=== PATIENT | female | born 1940 | race Caucasian/White ===

== ENCOUNTER 2019-01-09 11:55 | Observation (INO) | payer MEDICARE, BC ==
[~2019-01-09] VITALS: Ht 162.6 cm; Wt 76.7 kg
[2019-01-09 11:58] VITALS: BP 158/86
[2019-01-09] MEDS ORDERED: ELIQUIS2.5 MG PO (12:02)
[2019-01-09] MEDS ORDERED: CARDIZEM30 MG PO (12:08)
[2019-01-09] MEDS ORDERED: COZAAR 25 MG TA25 M1 PO (12:09)
[2019-01-09 12:31] LABS: ABSOLUTE EOSINOPHILS 0.1 thou/uL (0.0-0.7); ABSOLUTE LYMPHOCYTES 0.8 thou/uL (0.8-5.3); ABSOLUTE MONOCYTES 0.4 thou/uL (0.0-1.2); ABSOLUTE NEUTROPHILS 4.8 thou/uL (1.6-8.1); BASOPHILS 0.5 %; EOSINOPHILS 1.3 %; HEMATOCRIT 39.3 % (37.0-47.0); HEMOGLOBIN 13.5 gm/dL (12.0-15.0); LYMPHOCYTES 12.7 %; MCH 30.6 pg (26.0-34.0); MCHC 34.4 g/dL (28.0-37.0); MCV 88.9 fL (80.0-100.0); MONOCYTES 6.9 %; MPV 8.5 fl. (7.2-11.1); NUCLEATED RBCS 0 /100WBC; PLATELET COUNT* 177 thou/uL (150-400); POLYS 78.6 %; RBC 4.42 mil/uL (4.20-5.00); RDW-CV 13.6 % (10.5-14.5); WBC 6.1 thou/uL (4.0-11.0)
[2019-01-09 12:40] LABS: CALCIUM 9.3 mg/dL (8.5-10.1)
--- NOTE | 2019-01-09 12:42 | NUR ---
THIS NURSE RECEIVED REPORT FROM BEA RUSSELL. THIS NURSE TO ASSUME PT CARE AT THIS TIME.
[2019-01-09 12:51] LABS: ALBUMIN 3.7 g/dL (3.4-5.0); MAGNESIUM 2.2 mg/dL (1.8-2.4); TOTAL BILIRUBIN 0.8 mg/dL (<0.1-1.0); TOTAL PROTEIN 6.8 g/dL (6.4-8.2)
--- NOTE | 2019-01-09 18:09 | EKG ---
[place] [address] ELECTROCARDIOGRAM REPORT Name: SERENA FLORES Room: [address]R.#: [id number] Admission: 01/09/19 Attend Phys: Jessica Zambrano MD Discharge: Date of : 36 Report #: [id number] THIS REPORT FOR: //name// [facility] ED Test Date: 2019-01-09 Test Time: 12:09:48 Pat Name: SERENA FLORES Department: Room: [facility] Gender: F Interactive Media Marketing Specialist: EV : 1940 Requested By: Slava Freitas Order Number: [id number] MD: Neal Hall Measurements Intervals [place] Rate: 79 P: 48 IA: 175 QRS: 16 QRSD: 84 T: 38 QT: 371 QTc: 426 Interpretive Statements Sinus rhythm septal infarct, old Borderline ST depression, lateral leads No previous ECG available for comparison Electronically Signed On 01-09-2019 18:08:53 CDT by Neal Hall [email or web address] <ELECTRONICALLY SIGNED> By: Neal Hall MD, [facility] 01/09/19 1808 [id number] 120 Neal Hall MD, FACC /EPI
--- NOTE | 2019-01-09 18:58 | NUR ---
REPORT GIVEN TO BEA MCMILLAN WHO IS TO ASSUME PT CARE AT THIS TIME.
[2019-01-09 20:00] VITALS: BP 142/79
[2019-01-09 20:02] VITALS: BP 135/75
[2019-01-09] MEDS ORDERED: CARDIZEM SR 60M60 MG PO (22:58)
[2019-01-09] MEDS ORDERED: CELEBREX 200 M200 M1 PO (22:59)
[2019-01-09] MEDS ORDERED: SYNTHROID50 MCG PO (23:00)
[2019-01-09] MEDS ORDERED: ZYRTEC10 M4 PO (23:01)
[2019-01-09] MEDS ORDERED: COZAAR 50 MG TA50 M1 PO (23:03)
[2019-01-10] VITALS: BP 113/63
[2019-01-10 04:00] VITALS: BP 125/72
[2019-01-10 04:28] LABS: HEMATOCRIT 38.9 % (37.0-47.0); HEMOGLOBIN 13.4 gm/dL (12.0-15.0); MCH 31.1 pg (26.0-34.0); MCHC 34.3 g/dL (28.0-37.0); MCV 90.5 fL (80.0-100.0); RBC 4.3 mil/uL (4.20-5.00); RDW-CV 13.8 % (10.5-14.5); WBC 7.6 thou/uL (4.0-11.0)
[2019-01-10 05:12] LABS: CALCIUM 8.8 mg/dL (8.5-10.1); MAGNESIUM 2.2 mg/dL (1.8-2.4); POTASSIUM 4.3 mmol/L (3.5-5.1)
--- NOTE | 2019-01-10 06:56 | NUR ---
REPORT RECIEVED FROM ER. PT ORIENTED TO ROOM, CALL LIGHT SHOWN, FALL AGREEMENT WENT OVER, PT STATED UNDERSTANDING. ADMISSION DOCUMENTED. MEDS GIVEN PER E-MAR. PT EDUCATED TO REPORT CHEST PAIN. IV PATENT. TYLENOL GIVEN FOR HEADACHE. PT REPORTED CHEST PRESSURE THIS AM, EKG OBTAINED. WILL CONTINUE WITH PLAN OF CARE.
[2019-01-10 07:55] VITALS: BP 130/73
--- NOTE | 2019-01-10 09:18 | NUR ---
ASSUMED CARE OF PT THIS AM AROUND 07- HEALTH SERVICES INFORMATION SPECIALIST IN PLACE ORDERED, TRACING SR WITH 1ST DEGREE- UPON ASSESSMENT PT NOTED TO BE RESTING IN BED- PT A&O X4- CONTINENT OF B/B- UP AD-MORENO IN ROOM, STEADY GAIT NOTED- LCTA, RESP EVEN AND UN-LABORED- NOTED WET COUGH WITH REPORTED RECENT COLD-VSS, O2 SAT 96%- ABD SOFT/ROUND/NON-TENDER, BS X4 QUADS- LAST BM REPORTED THIS AM- IV NOTED TO KEFT AC INTACT AND SL- TRACE EDEMA NOTED TO BLE- CARDIO HERE TO ASSESS THIS AM WITH NOTED CARDIZEM INCREASE AND OKAY TO D/C WITH CONTINUED PLANS FOR PT TO FOLLOW UP WITH OWN TRANSMISSION SPECIALIST PLANNED- PT RATES PAIN TO HEAD 06/22, LIGHTS DIMMED AND NOISE REDUCED POST MEDICATION ADMINISTRATION- CALL LIGHT AND PERSONAL BELONGINGS WITH IN REACH- PT MAKES NEEDS KNOWN- ALL NEEDS MET AT THIS TIME-WCTM
--- NOTE | 2019-01-10 10:02 | EKG ---
[place] [address] ELECTROCARDIOGRAM REPORT Name: SANDRASERENA Ynes Room: [address]#: [id number] Admission: 01/09/19 Attend Phys: Jessica Zambrano MD Discharge: Date of : 36 Report #: [id number] THIS REPORT FOR: //name// [facility] Test Date: 2019-01-10 Test Time: 06:57:31 Pat Name: SERENA FLORES Department: Room: [address] Gender: F Yard Cleaner: : 1940 Requested By: Jessica Zambrano Order Number: [id number] MD: Neal Hall Measurements Intervals [place] Rate: 66 P: 82 LA: 170 QRS: 27 QRSD: 93 T: 38 QT: 415 QTc: 435 Interpretive Statements Sinus rhythm Borderline ST depression, lateral leads Compared to ECG 01/09/2019 12:09:48 ST (T wave) deviation still present Electronically Signed On 01-10-2019 10:01:50 CDT by Neal Hall [email or web address] <ELECTRONICALLY SIGNED> By: Neal Hall MD, [facility] 01/10/19 1001 [id number] Neal Hall MD, [facility] /EPI
[2019-01-10 10:04] VITALS: BP 130/73
[2019-01-10] MEDS ORDERED: NITROSTAT0.4 MG SUBLING (10:08)
--- NOTE | 2019-01-10 10:48 | NUR ---
MET WITH PT, STATES FEELING IMPROVED. IS VISITING FAMILY IN THE AREA, SHE IS FROM [place] AND HAS DRS THERE. PT IS INDEPENDENT AND ACTIVE, USES NO EQUIPMENT. DENIES ANY DC NEEDS
[2019-01-10 12:02] VITALS: BP 128/65
== END 2019-01-10 13:05 | disposition home or self-care (01) ==
LOC: M.ERS 11:55 → M.2W 13:36 → M.TBA-ER 13:36 → M.2W 20:04
PROVIDERS: Emergency Medicine Emergency Medical Services; ADMIT Internal Medicine
DX: R07.89 Other chest pain (principal); I48.91 Unspecified atrial fibrillation; I10 Essential (primary) hypertension; Z90.710 Acquired absence of both cervix and uterus; Z88.8 Allergy status to other drugs, medicaments and biological substances; Z79.01 Long term (current) use of anticoagulants; Z79.899 Other long term (current) drug therapy; I48.92 Unspecified atrial flutter; E03.9 Hypothyroidism, unspecified